=== PATIENT | female | born 1950 | race Caucasian/White ===

== ENCOUNTER → 2019-07-28 | Outpatient (CLI) | payer MEDICARE | END | disposition home or self-care (01) | LOC: RAH 12:41 | PROVIDERS: ATTEND Internal Medicine Critical Care Medicine | DX: M17.11 Unilateral primary osteoarthritis, right knee (principal); M25.761 Osteophyte, right knee; I82.401 Acute embolism and thrombosis of unspecified deep veins of right lower extremity; I74.9 Embolism and thrombosis of unspecified artery | CPT/HCPCS: 73560; 93971 ==